=== PATIENT | male | born 1975 ===

== ENCOUNTER 2025-05-20 10:45 | Inpatient (IN) | payer OTHER ==
[~2025-05-20] VITALS: Ht 61 cm; Wt 111.1 kg
[2025-05-20 14:12] LABS: RH POSITIVE
[2025-05-26] MEDS ORDERED: LIDOCAINE HCL 1% 20 ML VIAL IJ ONE (07:00)
[2025-05-26] MEDS ORDERED: CEFTRIAXONE SODIUM 2,000 MG VIAL IV ONE (07:00)
[2025-05-26] MEDS ORDERED: METRONIDAZOLE/SODIUM CHLORIDE 500 MG/100 ML PIGGYBACK IV ONE (07:00)
[2025-05-26] MEDS ORDERED: SUGAMMADEX SODIUM 200 MG/2 ML VIAL IV ONE (07:00)
[2025-05-26] MEDS ORDERED: BUPIVACAINE HCL/PF 0.25% 30ML VIAL InF ONE (07:00)
[2025-05-26] MEDS ORDERED: LIDOCAINE HCL 1% 10ML VIAL ONE (07:58)
[2025-05-26] MEDS ORDERED: BUPIVACAINE HCL/MPF 0.5% 30ML VIAL ONE (07:58)
[2025-05-26] MEDS ORDERED: ONDANSETRON HCL 2 MG/ML VIAL ONE (10:08)
[2025-05-26] MEDS ORDERED: ENALAPRILAT DIHYDRATE 1.25 MG/ML VIAL IV ONE ×3 (11:04→15:55)
[2025-05-26] MEDS ORDERED: RINGERS SOLUTION,LACTATED 1,000 ML IV SCH (13:30)
[2025-05-26] MEDS ORDERED: ONDANSETRON HCL 2 MG/ML VIAL IV PRN (13:30)
[2025-05-26] MEDS ORDERED: OxyCODONE HCL 5 MG TABLET (ROXICODONE) PO PRN (13:30)
[2025-05-26] MEDS ORDERED: MORPHINE SULFATE 4 MG/ML CARTRIDGE IV PRN (13:30)
[2025-05-26] MEDS ORDERED: DEXTROSE 50 % IN WATER 0.5 G/ML VIAL IV PRN (13:30)
[2025-05-26] MEDS ORDERED: ACETAMINOPHEN 500 MG GEL..CAP PO SCH (14:00)
[2025-05-26 14:08] LABS: BASO % 0.1 % (0.1-1.2); EOS # 0.01 (0.04-0.54); EOS % 0.1 % (0.7-7.0); LYMPH # 1.00 (1.18-3.74); LYMPH % 6.5 % (19.3-53.1); MEAN PLATELET VOLUME 9.70 fl (9.4-12.4); MONO # 0.85 (0.24-0.82); MONO % 5.6 % (4.7-12.5); NEUT # 13.34 (1.56-6.13); NEUT % 87.4 % (34.0-71.1); RED CELL DISTRIBUTION WIDTH 11.6 % (11.6-14.4)
[2025-05-26] MEDS ORDERED: ENALAPRILAT DIHYDRATE 1.25 MG/ML VIAL IV PRN (14:45)
[2025-05-26 15:25] LABS: BUN CREA RATIO 10.0 (7.0-25.0); CREATININE SERUM 0.83 mg/dL (0.70-1.30); GFR 97.67; GLUCOSE FASTING 179.0 mg/dL (65-100); OSMOLALITY SERUM 282.0 MOSM/KG (275-295)
[2025-05-26 16:25] VITALS: BP 163/94; O2SAT 94
[2025-05-26] MEDS ORDERED: GABAPENTIN 300 MG CAPSULE PO SCH (17:00)
[2025-05-26] MEDS ORDERED: HYOSCYAMINE SULFATE 0.125 MG TAB.SUBL SL SCH (17:00)
[2025-05-26] MEDS ORDERED: FAMOTIDINE/PF 20 MG/2 ML VIAL IV PUSH SCH (21:00)
[2025-05-27] VITALS: BP 142/90; O2SAT 96
[2025-05-27 06:50] LABS: BASO % 0.1 % (0.1-1.2); EOS # 0.01 (0.04-0.54); EOS % 0.1 % (0.7-7.0); LYMPH # 1.84 (1.18-3.74); LYMPH % 17.2 % (19.3-53.1); MEAN PLATELET VOLUME 9.60 fl (9.4-12.4); MONO # 1.11 (0.24-0.82); MONO % 10.4 % (4.7-12.5); NEUT # 7.67 (1.56-6.13); NEUT % 71.9 % (34.0-71.1); RED CELL DISTRIBUTION WIDTH 11.6 % (11.6-14.4)
[2025-05-27 07:29] LABS: BUN CREA RATIO 8.0 (7.0-25.0); CREATININE SERUM 0.75 mg/dL (0.70-1.30); GFR 109.79; GLUCOSE FASTING 114.0 mg/dL (65-100); OSMOLALITY SERUM 280.0 MOSM/KG (275-295)
[2025-05-27 08:00] VITALS: BP 162/83; O2SAT 96
[2025-05-27 15:30] VITALS: BP 149/86; O2SAT 96
[2025-05-27] MEDS ORDERED: ENOXAPARIN SODIUM 40 MG/0.4 ML SYRINGE SUBCUTANEO SCH (17:00)
[2025-05-28 01:22] VITALS: BP 139/83; O2SAT 97
[2025-05-28 06:48] LABS: BASO % 0.1 % (0.1-1.2); EOS # 0.05 (0.04-0.54); EOS % 0.5 % (0.7-7.0); LYMPH # 1.77 (1.18-3.74); LYMPH % 17.7 % (19.3-53.1); MEAN PLATELET VOLUME 9.50 fl (9.4-12.4); MONO # 0.89 (0.24-0.82); MONO % 8.9 % (4.7-12.5); NEUT # 7.25 (1.56-6.13); NEUT % 72.4 % (34.0-71.1); RED CELL DISTRIBUTION WIDTH 11.6 % (11.6-14.4)
[2025-05-28 07:15] LABS: BUN CREA RATIO 10.0 (7.0-25.0); CREATININE SERUM 0.68 mg/dL (0.70-1.30); GFR 122.94; GLUCOSE FASTING 129.0 mg/dL (65-100); OSMOLALITY SERUM 283.0 MOSM/KG (275-295)
[2025-05-28] MEDS ORDERED: ENOXAPARIN SODIUM 40 MG/0.4 ML SYRINGE SUBCUTANEO SCH (09:00)
[2025-05-28 09:15] VITALS: BP 145/80; O2SAT 97
[2025-05-28 16:00] VITALS: BP 133/74; O2SAT 98
[2025-05-29 08:28] VITALS: BP 158/88; O2SAT 97
[2025-05-29] MEDS ORDERED: INTESTINEX680 M1 PO (14:50)
[2025-05-29] MEDS ORDERED: NEURONTIN300 MG PO (14:50)
[2025-05-29] MEDS ORDERED: TYLENOL ARTHRI650 MG PO (14:50)
== END 2025-05-29 16:30 | disposition home or self-care (01) | DRG 331 ==
LOC: O/R 05-26 06:00 → SURG 05-26 06:00 → SURH 05-26 10:45 → SURG 05-26 13:17 → SURH 05-26 14:00 → SURG 05-27 16:01
PROVIDERS: ADMIT Surgery; ATTEND Surgery
PROC: 07BB4ZZ Excision of Mesenteric Lymphatic, Percutaneous Endoscopic Approach (ICD-10-PCS; 2025-05-26)
PROC: 0DTF4ZZ Resection of Right Large Intestine, Percutaneous Endoscopic Approach (ICD-10-PCS; principal; 2025-05-26 14:00)
DX: D12.0 Benign neoplasm of cecum (principal); R59.0 Localized enlarged lymph nodes; D37.4 Neoplasm of uncertain behavior of colon; I10 Essential (primary) hypertension